=== PATIENT | male | born 2000 ===

== ENCOUNTER 2019-10-09 15:26 | Emergency (ER) | payer BC ==
[~2019-10-09 15:26] MED LIST: Iopamidol-370 76% 500 ML 1 ML ONE
--- NOTE | 2019-10-09 15:54 | RAD ---
XR Chest Pa Lat STANDARD History: Chest pain Comparison: None Findings: Lungs are clear. No pneumothorax or effusion. Cardiac silhouette and mediastinal contours a re within normal limits. No acute osseous abnormality. Impression: No acute intrathoracic abnormality.
[2019-10-09 18:02] LABS: #Lymphocytes 1.2 thou/uL (1.20-3.40); #Monocytes 0.8 thou/uL (0.11-0.59); #Neutrophils 5.6 thou/uL (1.40-6.50); %Basophils 0.6 % (0.0-1.0); %Eosinophils 0.4 % (0.0-10.0); %Monocytes 10.3 % (0.0-10.0); %Neutrophils 72.7 % (42.0-75.0); Hemoglobin 14.2 g/dL (14.0-18.0); Mean Corpuscular Hemoglobin 30.6 pg (27.0-31.0); Mean Corpuscular Volume 90.1 fL (78.0-98.0); Mean Platelet Volume 8.1 fL (7.4-10.4); Platelet Count 208 thou/uL (130-400); RBC Distribution Width 10.9 % (11.5-14.5); Red Blood Cell (RBC) Count 4.63 mill/uL (4.70-6.10); White Blood Cell (WBC) Count 7.7 thou/uL (4.8-10.8)
[2019-10-09] MEDS ORDERED: Mag-Al 1200 mg/1200 mg/30 ML UDCUP ONE (18:08)
[2019-10-09] MEDS ORDERED: Lidocaine Viscous Sol 2% 15 ml UD Cup ONE (18:09)
--- NOTE | 2019-10-09 18:28 | CT ---
EXAM: CT pulmonary angiogram with IV contrast and 3-D MIP reconstructions PROVIDED CLINICAL HISTORY: Chest pain COMPARISON: None FINDINGS: There is no evidence for central or segmental pulmonary embolus. Residual thymic tissue is seen withi n the anterior mediastinum. The lungs are free of significant opacity. No pleural fluid or pneumothorax apparent. No evidence for thoracic lymph node enlargement. The airway appears patent and of normal caliber. There is mural thickening noted involving the mid to distal thoracic esophagus without abnormality of the mediastinal fat. Visualized portions of the upper abdomen appear unremarkable. The osseous structures demonstrate no concerning lytic or blastic lesions. IMPRESSION: 1. No evidence for central or segmental pulmonary embolus. 2. Mural thickening involving the mid to distal thoracic esophagus, compatible with esophagitis.
[2019-10-09 18:42] LABS: ALT (SGPT) 20 U/L (8-55); AST (SGOT) 24 U/L (5-34); Albumin 4.6 g/dL (3.5-5.0); Alkaline Phosphatase 72 U/L (40-110); Anion Gap 18 mmol/L (10-20); BUN (Urea Nitrogen) 12 mg/dL (8.9-20.6); Bilirubin, Total 0.6 mg/dL (0.2-1.2); CK (CPK) 129 U/L (30-200); Calc. Creatinine Clearance 0 mL/min (70-130); Calcium 9.8 mg/dL (7.8-10.44); Carbon Dioxide 25 mmol/L (22-29); Chloride 100 mmol/L (98-107); Estimated GFR-MDRD Greater than 90; Globulin 2.9 g/dL (2.4-3.5); Glucose 82 mg/dL (70-105); Lipase 13 U/L (8-78); Potassium 4.5 mmol/L (3.5-5.1); Protein, Total 7.5 g/dL (6.0-8.3); Sodium 138 mmol/L (136-145)
== END 2019-10-09 19:12 | disposition home or self-care (01) ==
LOC: ERS 15:26
DX: K20.9 Esophagitis, unspecified (principal)
CPT/HCPCS: 36415; 71046; 71275; 80053; 82550; 83690; 84484; 85025; 93005; Q9967